=== PATIENT | female | born 1990 | race African-American/Black ===

== ENCOUNTER 2019-04-16 11:36 | Emergency (ER) | payer MEDICAID, MEDICARE, OTHER ==
[~2019-04-16] VITALS: Ht 175.3 cm; Wt 93.0 kg
[2019-04-16] MEDS ORDERED: SODIUM CHLORIDE 0.9% 1,000 ML IV ONE (12:01)
[2019-04-16 12:18] LABS: HEMATOCRIT. 36.6 % (36.0-48.0); HEMOGLOBIN. 11.8 g/dL (12.0-16.0); LYMPHOCYTES % 32.2 % (20.0-50.0); MEAN CORPUSCULAR HEMOGLOBIN 24.4 pg (28.0-32.0); MEAN PLATELET VOLUME 7.2 fl (7.4-10.4); MONOCYTES % 8.5 % (2.0-8.0); NEUTROPHILS % 55.3 % (40.0-76.0); PLATELET 372 x1000/uL (130-400); RED BLOOD CELL COUNT 4.82 mill/uL (4.2-5.4); RED CELL DISTRIBUTION WIDTH 21.1 % (11.6-14.6)
[2019-04-16 12:24] LABS: CHLORIDE 107 mEq/L (98-107)
[2019-04-16 12:35] LABS: CLARITY URINE TURBID (CLEAR); KETONES URINE TRACE (NEGATIVE); LEUKOCYTE ESTERASE URINE 2+ (NEGATIVE); NITRITE URINE NEGATIVE (NEGATIVE); OCCULT BLOOD URINE 3+ (NEGATIVE); PH URINE 7.5 (4.5-8.0); PROTEIN URINE 1+ (NEGATIVE); SPECIFIC GRAVITY URINE 1.025 (1.005-1.030)
[2019-04-16 12:43] LABS: COLOR URINE BLOODY (YELLOW)
[2019-04-16 12:53] LABS: B-HCG QUANTITATIVE 106896 mIU/mL (<3)
[2019-04-16 15:33] VITALS: BP 111/63
== END 2019-04-16 15:36 | disposition home or self-care (01) ==
LOC: ER 11:36
DX: O20.0 Threatened abortion (principal); O26.891 Other specified pregnancy related conditions, first trimester; O23.41 Unspecified infection of urinary tract in pregnancy, first trimester; O34.81 Maternal care for other abnormalities of pelvic organs, first trimester; N83.209 Unspecified ovarian cyst, unspecified side; O34.11 Maternal care for benign tumor of corpus uteri, first trimester; D25.9 Leiomyoma of uterus, unspecified; Z3A.10 10 weeks gestation of pregnancy
CPT/HCPCS: 36415; 76801; 76817; 80053; 81003; 84702; 85025; 86850; 86900; 86901; 99284; J7030

== ENCOUNTER 2019-07-07 01:42 | Observation (INO) | payer MEDICAID ==
[~2019-07-07] VITALS: Ht 175.3 cm; Wt 103.9 kg
[2019-07-07] MEDS ORDERED: PNV1TABL50 PO (02:21)
[2019-07-07] MEDS ORDERED: ACETAMINOPHEN 500MG TABLET PO NR (03:00)
[2019-07-07 03:31] LABS: CLARITY URINE TURBID (CLEAR); COLOR URINE DARK YELLOW (YELLOW); KETONES URINE NEGATIVE (NEGATIVE); LEUKOCYTE ESTERASE URINE 2+ (NEGATIVE); NITRITE URINE NEGATIVE (NEGATIVE); OCCULT BLOOD URINE 2+ (NEGATIVE); PH URINE 5.5 (4.5-8.0); PROTEIN URINE 1+ (NEGATIVE); SPECIFIC GRAVITY URINE 1.029 (1.005-1.030); UROBILINOGEN URINE 0.2 E.U./dL (0.2-1.0)
[2019-07-07 03:41] LABS: *AMPHETAMINES SCREEN URINE NEGATIVE (NEGATIVE); *BARBITURATES SCREEN URINE NEGATIVE (NEGATIVE); *BENZODIAZEPINES SCREEN URINE NEGATIVE (NEGATIVE); *COCAINE SCREEN URINE NEGATIVE (NEGATIVE); METHADONE URINE SCREEN NEGATIVE (NEGATIVE); OPIATES URINE SCREEN NEGATIVE (NEGATIVE)
[2019-07-07 03:42] LABS: CANNABINOID URINE SCREEN NEGATIVE (NEGATIVE); PHENCYCLIDINE URINE SCREEN NEGATIVE (NEGATIVE)
[2019-07-07] MEDS ORDERED: CEFAZOLIN SODIUM 1000MG/VIAL IV ONE (05:00)
[2019-07-07] MEDS ORDERED: LACTATED RINGERS 1,000 ML IV NR (05:00)
[2019-07-07] MEDS ORDERED: CEFAZOLIN 2000MG in DEXTROSE 5% WATER 100ML IV NR (05:30)
[2019-07-07] MEDS ORDERED: NITR-87 MT (21:24)
== END 2019-07-07 06:30 | disposition home or self-care (01) ==
LOC: 8 EST LDRP 01:42
PROVIDERS: ADMIT Obstetrics & Gynecology; ATTEND Obstetrics & Gynecology
DX: O26.892 Other specified pregnancy related conditions, second trimester (principal); R10.9 Unspecified abdominal pain; Z3A.26 26 weeks gestation of pregnancy
CPT/HCPCS: 80305; 81003; 87086; 96365; G0378; J0690; J7060

== ENCOUNTER 2019-07-07 19:22 | Inpatient (IN) | payer MEDICAID ==
[~2019-07-07] VITALS: Ht 175.3 cm; Wt 103.9 kg
[~2019-07-07 19:22] MED LIST changes: -NITR-87 MT
[2019-07-07] MEDS: TERBUTALINE SULFATE 1MG/ML VIAL SUBCUT PRN ×2 (20:04→20:48)
[2019-07-07] MEDS ORDERED: TERBUTALINE SULFATE 1MG/ML VIAL ONE (20:05)
[2019-07-07] MEDS ORDERED: LACTATED RINGERS 1,000 ML IV SCH (20:09)
[2019-07-07] MEDS ORDERED: LIDOCAINE HCL 1% 20ML VIAL (Pyxis) INJ INFIL SCH (20:15)
[2019-07-07] MEDS ORDERED: METHYLERGONOVINE MALEATE 0.2 MG/ML IM PRN ×2 (20:15→23:45)
[2019-07-07] MEDS ORDERED: MAGNESIUM 2 G PREMIX 50 ML IV NR (20:15)
[2019-07-07] MEDS ORDERED: CARBOPROST TROMETHAMINE 250 MCG/ML AMPUL IM PRN (20:15)
[2019-07-07] MEDS ORDERED: MAGNESIUM 4 G PREMIX 100 ML IV NR (20:15)
[2019-07-07] MEDS ORDERED: AMPICILLIN 2,000 MG in SODIUM CHLORIDE 0.9% 100 ML IV SCH (21:00)
[2019-07-07] MEDS ORDERED: MAGNESIUM SULFATE 20 GM in DEXT 5% WATER 500 ML IV SCH (21:00)
[2019-07-07 21:06] LABS: INR 0.9; PARTIAL THROMBOPLASTIN TIME 29.2 sec (23.4-31.0); PROTHROMBIN TIME 9.5 sec (9.6-11.0)
[2019-07-07 21:09] LABS: BASOPHILS % 0.2 % (0.0-2.0); EOSINOPHILS % 1.7 % (0.0-5.0); HEMATOCRIT. 35.1 % (36.0-48.0); HEMOGLOBIN. 11.3 g/dL (12.0-16.0); LYMPHOCYTES % 27.4 % (20.0-50.0); MEAN CORPUSCULAR HEMOGLOBIN 25.7 pg (28.0-32.0); MEAN CORPUSCULAR VOLUME 80.1 fL (81.0-99.0); MEAN PLATELET VOLUME 6.8 fl (7.4-10.4); MONOCYTES % 6.8 % (2.0-8.0); NEUTROPHILS % 63.9 % (40.0-76.0); PLATELET 383 x1000/uL (130-400); RED BLOOD CELL COUNT 4.38 mill/uL (4.2-5.4); RED CELL DISTRIBUTION WIDTH 16.4 % (11.6-14.6)
[2019-07-07 21:09] LABS: CLARITY URINE TURBID (CLEAR); COLOR URINE ORANGE (YELLOW); KETONES URINE NEGATIVE (NEGATIVE); LEUKOCYTE ESTERASE URINE 3+ (NEGATIVE); NITRITE URINE NEGATIVE (NEGATIVE); OCCULT BLOOD URINE 3+ (NEGATIVE); PH URINE >=9.0 (4.5-8.0); PROTEIN URINE 1+ (NEGATIVE); SPECIFIC GRAVITY URINE 1.019 (1.005-1.030); UROBILINOGEN URINE 0.2 E.U./dL (0.2-1.0)
[2019-07-07] MEDS ORDERED: AZITHROMYCIN 1,000 MG in DEXT 5% WATER 250 ML IV SCH (21:15)
[2019-07-07 21:24] LABS: *AMPHETAMINES SCREEN URINE NEGATIVE (NEGATIVE); *BARBITURATES SCREEN URINE NEGATIVE (NEGATIVE); *BENZODIAZEPINES SCREEN URINE NEGATIVE (NEGATIVE); *COCAINE SCREEN URINE NEGATIVE (NEGATIVE); METHADONE URINE SCREEN NEGATIVE (NEGATIVE); OPIATES URINE SCREEN NEGATIVE (NEGATIVE)
[2019-07-07] MEDS ORDERED: NITR-87 MT (21:24)
[2019-07-07 21:25] LABS: CANNABINOID URINE SCREEN NEGATIVE (NEGATIVE); PHENCYCLIDINE URINE SCREEN NEGATIVE (NEGATIVE)
[2019-07-07] MEDS: DEXT 5%/LR + PITOCIN 20UNITS/L 1,000 ML IV SCH ×2 (21:30→21:50)
[2019-07-07 21:36] LABS: HEPATITIS B SURFACE ANTIGEN NEGATIVE
[2019-07-07] MEDS ORDERED: AZITHROMYCIN 500 MG in DEXT 5% WATER 250 ML IV NR (22:00)
[2019-07-07] MEDS ORDERED: BETAMETHASONE ACET/BETAMET 30 MG/5 ML VIAL IM SCH (22:00)
[2019-07-07] MEDS ORDERED: BUTORPHANOL TARTRATE 2 MG/ML VIAL IV PRN (22:45)
[2019-07-07] MEDS ORDERED: RHO(D) IMMUNE GLOBULIN 300 MCG/SYR IM PRN (23:45)
[2019-07-07] MEDS ORDERED: IBUPROFEN 400MG TABLET PO PRN (23:45)
[2019-07-08 02:30] VITALS: BP 128/77
[2019-07-08 03:00] VITALS: BP 124/68
[2019-07-08 04:00] VITALS: BP 127/65
[2019-07-08] MEDS: IBUPROFEN 800MG TABLET PO PRN ×2 (05:36→15:55)
[2019-07-08 06:56] LABS: HEMOGLOBIN. 10.8 g/dL (12.0-16.0); MEAN CORPUSCULAR VOLUME 79.6 fL (81.0-99.0); PLATELET 347 x1000/uL (130-400); RED BLOOD CELL COUNT 4.15 mill/uL (4.2-5.4); RED CELL DISTRIBUTION WIDTH 16.2 % (11.6-14.6)
[2019-07-08] MEDS ORDERED: DEXT 5%/LR + PITOCIN 20UNITS/L 1,000 ML IV SCH ×2 (07:30)
[2019-07-08 08:02] VITALS: BP 113/55
[2019-07-08] MEDS: NITROFURANTOIN 100MG M/M CAPSULE PO SCH ×2 (08:41→17:10)
[2019-07-08 16:10] VITALS: BP 114/67
[2019-07-08 20:00] VITALS: BP 124/62
[2019-07-08] MEDS: DIPHENHYDRAMINE 50MG CAPSULE PO PRN (20:55)
[2019-07-08 21:46] LABS: PLATELET ESTIMATE NORMAL
[2019-07-09 04:00] VITALS: BP 112/54
[2019-07-09] MEDS: DIPHENHYDRAMINE 50MG CAPSULE PO PRN (05:55)
[2019-07-09 08:00] VITALS: BP 106/51
== END 2019-07-09 12:00 | disposition home or self-care (01) | DRG 560 ==
LOC: OBSVTOIN 19:22 → 8 EST LDRP 19:22
PROVIDERS: ADMIT Obstetrics & Gynecology; ATTEND Obstetrics & Gynecology
PROC: 10E0XZZ Delivery of Products of Conception, External Approach (ICD-10-PCS; principal; 2019-07-07)
DX: O60.12X0 Preterm labor second trimester with preterm delivery second trimester, not applicable or unspecified (principal); O36.4XX0 Maternal care for intrauterine death, not applicable or unspecified; O32.1XX0 Maternal care for breech presentation, not applicable or unspecified; Z37.1 Single stillbirth; Z3A.22 22 weeks gestation of pregnancy
CPT/HCPCS: 36415; 76805; 80305; 81003; 85025; 86592; 86703; 86762; 86850; 86900; 87340; 88307; 96360; 96365; 99281; G0378; J0290; J0456; J0595; J0702; J2590; J3105; J3475; J7050; J7060; Q0163

== ENCOUNTER → 2019-07-07 | Emergency (ER) | payer MEDICAID ==
[~2019-07-07] MED LIST: NITR-87 MT; PNV1TABL50 PO
== END | disposition home or self-care (01) ==
LOC: ER 19:22
DX: O26.899 Other specified pregnancy related conditions, unspecified trimester (principal); Z3A.00 Weeks of gestation of pregnancy not specified; Z53.21 Procedure and treatment not carried out due to patient leaving prior to being seen by health care provider
CPT/HCPCS: Z7610 ×2